=== PATIENT | female | born 1980 | race Caucasian/White ===

== ENCOUNTER 2017-07-24 09:21 | Emergency (ER) | payer OTHER ==
[~2017-07-24] VITALS: Ht 160 cm; Wt 93.2 kg
[~2017-07-24 09:21] MED LIST: CIPR2.5D18 RIGHTEYE
[2017-07-24 09:26] VITALS: BP 131/75
== END 2017-07-24 10:27 | disposition home or self-care (01) ==
LOC: ER 09:22
DX: M94.0 Chondrocostal junction syndrome [Tietze] (principal)
CPT/HCPCS: 36415; 71045; 84484; 93005; 99285

== ENCOUNTER 2017-11-18 13:53 | Emergency (ER) | payer SELFPAY ==
[~2017-11-18] VITALS: Ht 539.5 cm; Wt 91.4 kg
[2017-11-18 14:11] VITALS: BP 123/80
[2017-11-18] MEDS ORDERED: PENI250T2 PO (14:15)
== END 2017-11-18 14:18 | disposition home or self-care (01) ==
LOC: ER 13:54
DX: K04.7 Periapical abscess without sinus (principal); Z79.2 Long term (current) use of antibiotics
CPT/HCPCS: 99283

== ENCOUNTER 2018-01-05 13:19 | Emergency (ER) | payer MEDICAID, OTHER ==
[~2018-01-05] VITALS: Ht 160 cm; Wt 77.0 kg
[2018-01-05 13:24] VITALS: BP 123/82
[2018-01-05] MEDS ORDERED: penicillin G benzathine 1.2 million unit/2ml syringe IM ONE (14:40)
== END 2018-01-05 15:00 | disposition home or self-care (01) ==
LOC: ER 13:20
DX: R13.19 Other dysphagia (principal)
CPT/HCPCS: 87880; 96372; 99283; J0561

== ENCOUNTER 2019-01-23 13:04 | Emergency (ER) | payer MEDICAID, OTHER ==
[~2019-01-23] VITALS: Ht 157.5 cm; Wt 98.0 kg
[2019-01-23 13:05] VITALS: BP 136/85
[2019-01-23] MEDS ORDERED: CLIN-90 PO (15:06)
[2019-01-23] MEDS ORDERED: PRED20TA PO (15:06)
== END 2019-01-23 15:44 | disposition home or self-care (01) ==
LOC: ER 13:05
DX: K02.9 Dental caries, unspecified (principal); J40 Bronchitis, not specified as acute or chronic; F10.99 Alcohol use, unspecified with unspecified alcohol-induced disorder; Z79.899 Other long term (current) drug therapy; Y90.9 Presence of alcohol in blood, level not specified
CPT/HCPCS: 93005; 99283